=== PATIENT | female | born 1985 | race Caucasian/White ===

== ENCOUNTER 2022-05-07 11:50 | Outpatient (REF) | payer OTHER, SELFPAY ==
[2022-05-09 18:02] LABS: Homocysteine 135.1 umol/L (<10.4)
== END 2022-05-07 11:51 | disposition home or self-care (01) ==
LOC: HO.LAB 11:50
PROVIDERS: PCP Family Medicine; Visit Provider Family Medicine
DX: Z86.73 Personal history of transient ischemic attack (TIA), and cerebral infarction without residual deficits (principal)
CPT/HCPCS: 36415; 83090

== ENCOUNTER 2024-05-11 08:17 | Outpatient (REF) | payer OTHER, SELFPAY ==
[2024-05-13 15:09] LABS: Homocysteine 8.7 umol/L (<10.4)
== END 2024-05-11 08:18 | disposition home or self-care (01) ==
LOC: HO.LAB 08:17
PROVIDERS: PCP Family Medicine; Visit Provider Family Medicine
DX: E72.11 Homocystinuria (principal)
CPT/HCPCS: 36415; 83090

== ENCOUNTER 2025-10-07 09:08 | Outpatient (AMB) | payer OTHER, SELFPAY ==
--- NOTE | 2025-10-07 07:42 | MHC.PC.OV ---
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 1. Little interest or pleasure in doing things: not at all 2. Feeling down, depressed, or hopeless: not at all 3. Trouble falling or staying asleep, or sleeping too much: not at all 4. Feeling tired or having little energy: not at all 5. Poor appetite or overeating: not at all 6. Feeling bad about yourself - or that you are a failure or have let yourself or your family down: not at all 7. Trouble concentrating on things, such as reading the newspaper or watching television: not at all 8. Moving or speaking so slowly that other people could have noticed. Or the opposite - being so fidgety or restless that you have been moving around a lot more than usual: not at all 9. Thoughts that you would be better off or of hurting yourself in some way: not at all Total score: 0 Source: Developed by Drs. Rei May, Tania Huber, Mick Orozco and colleagues, with an educational kirby from [employer]. Thrive Questionnaire Date Thrive assessed: 10/07/25 I am a: Patient Within the past 12 months, did the food you bought not last and you didn't have the money to get more?: Never true Within the past 12 months, did you worry whether your food would run out before you got money to buy more?: Never true Do you have trouble paying for medicines?: No Do you have trouble getting transportation to medical appointments?: No Do you have trouble paying your heating and electricity bill?: No Do you have trouble taking care of your child, family member or friend?: No Do you have trouble with day-to-day activities such as bathing, preparing meals, shopping, managing finances, etc.?: No Are you currently unemployed and looking for a job?: No Are you interested in more education?: No THRIVE Score: 0 AUDIT C Alcohol Use Questionnaire (AUDIT-C) 1. How often do you have a drink containing alcohol?: Monthly or less 2. How many drinks containing alcohol do you have on a typical day when you are drinking?: 1 or 2 3. How often do you have six or more drinks on one occasion?: Less than monthly Total Score: 2 ANA-7 AMB Questionnaire ANA-7 Date ANA - 7 assessed: 10/07/25 Feeling nervous, anxious, or on edge: 0 = Not at all Not being able to stop or control worryin = Not at all Worrying too much about different things: 0 = Not at all Trouble relaxin = Not at all Being so restless that it is hard to sit still: 0 = Not at all Becoming easily annoyed or irritable: 0 = Not at all Feeling afraid as if something awful might happen: 0 = Not at all Total ANA-7 score (0-4 normal; 5-9 mild; 10-14 moderate; 15-21 severe): 0 Source: Developed by Drs. Rei May, Tania Huber, Mick Orozco and colleagues, with an educational kirby from [employer]. Coding
--- NOTE | 2025-10-07 09:11 | MHC.PC.OV ---
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 Required: No Accompanied by: Self / Same As Patient Is last menstrual period known: No (07/07/25) Patient : Yes Allergies No Known Allergies Allergy (Verified 10/07/25 09:11) Tobacco use date assessed: 10/07/25 Dental Screening Dental Screen Date: 10/07/25 Did you have a dental visit in the last 12 months?: Yes Did you have a dental problem in the last 6 months where you did not have access to dental care?: No Was dental information given to patient?: Patient has dentist HPI HPI Comments History of Present Illness Details 40-year-old female with history of CVA, anxiety presenting to the office today for management of chronic conditions and to establish care. 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 Had been on Lovenox 6 week which was then discontinued and then 6 months had recurrence. Symptoms were right-sided paresthesias and right-sided facial droop. She has now been on Eliquis 5 mg twice daily lifelong. However is now 9 weeks and has been transitioned back to enoxaparin. No other family history of clots -9 weeks gestation. On prenatals with folic acid. Initially had been experiencing some nausea and vomiting but this has subsided. She is otherwise feeling well. Following with [facility] Ob, appointment next month. 6m pp ischemic same part of brain. on lovenox 6w then 6 m recurrence. now on eliquis lifelong. migraines x4 days. right paresthesia, facial droop. She will be meeting with Maternal Medicine Anxiety-has been well-controlled since becoming . Has lorazepam as needed Concerns: None Health maintenance: Mammograms to start at age 40 or when , breast-feeding/pumping has concluded ROS: General: No fevers, malaise, unintentional weight loss HEENT: No blurred vision, diplopia. No sore throat, nasal congestion, rhinorrhea, sinus pain, ear pain Cardiovascular: No chest pain, palpitations, or leg edema Respiratory: No shortness of breath, wheezing, cough GI: No abdominal pain, nausea, vomiting, diarrhea, constipation, melena, hematochezia : No dysuria, hematuria, increased urinary frequency, decreased urinary output MSK: No myalgia, back pain Neuro: No headaches, weakness, paresthesias Skin: No rashes or lesions EXAM: Constitutional - Awake and Alert, No apparent distress Eyes - PERRL Cardiovascular - S1S2, RRR, No edema Respiratory - Normal lung expansion, Normal respiratory effort, No respiratory distress, CTA bilaterally Extremities - no calf tenderness bilaterally, no swelling Skin - Warm/Dry Neurological - Alert & oriented x3 Psychological - Appropriate affect [facility] Medical History (Updated 10/07/25 @ 09:54 by PHILIPPE Bennett) Anxiety Ectopic Elevated homocysteine CVA (cerebral vascular accident) Surgical History (Updated 10/07/25 @ 09:42 by PHILIPPE Bennett) S/P unilateral salpingo-oophorectomy Family History (Updated 10/07/25 @ 09:42 by PHILIPPE Bennett) Father Diabetes Basal cell carcinoma High plasma homocystine Brother High plasma homocystine Social History Housing: House Patient Tobacco Use Status: Never used Tobacco e-Cigarette/Vaping Use: Never Used service: No Current occupational status: employed Current occupation: [employer] Questionnaire AUDIT C Alcohol Use Questionnaire (AUDIT-C) 1. How often do you have a drink containing alcohol?: Never 2. How many drinks containing alcohol do you have on a typical day when you are drinking?: 1 or 2 3. How often do you have six or more drinks on one occasion?: Less than monthly Total Score: 1 Physical exam (Primary Care) Vital Signs: Last Vital Signs Temp 97.9 F 10/07/25 09:19 Pulse 83 10/07/25 09:19 Resp 16 10/07/25 09:19 BP 98/64 10/07/25 09:19 Pulse Ox 97 10/07/25 09:19 Oxygen Delivery Method Room Air 10/07/25 09:19 BMI result Body Mass Index 26.5 Tobacco/Smoking Status: Tobacco use Status Tobacco use date assessed 10/07/25 10/07/25 09:13 Patient Tobacco Use Status Never used Tobacco 10/07/25 09:22 e-Cigarette/Vaping Use Never Used 10/07/25 09:22 Coding Level of Care Code Complex visit Add On G2211 Diagnoses CVA (cerebral vascular accident) I63.9 Elevated homocysteine R79.89 Z34.90 Anxiety F41.9 Assessment & Plan Assessment & Plan (1) CVA (cerebral vascular accident): Comment: OCP and elevated homocysteine 2005 and 2023- Code(s): I63.9 - Cerebral infarction, unspecified Category: Medical Plan: Reviewed last Hematology note. Continue enoxaparin until 6 weeks at which time will transition back to Eliquis. Reviewed last Hematology note. (2) Elevated homocysteine: Code(s): R79.89 - Other specified abnormal findings of blood chemistry Category: Medical Plan: Reviewed last Hematology note. As above (3) : Code(s): Z34.90 - Encounter for supervision of normal , unspecified, unspecified trimester Category: Medical Plan: Meet with Maternal- Medicine regarding medications. Establish with Ob next month as scheduled. Continue vitamins (4) Anxiety: Code(s): F41.9 - Anxiety disorder, unspecified Category: Medical Plan: Follow-up with Maternal Medicine as scheduled. Use lorazepam only as needed for severe anxiety/panic Plan Follow-up in the office for annual physical exam in 6 months. Labs as below Orders: Orders Basic Metabolic Panel Today I63.9 - Cerebral infarction, unspecified, Z34.90 - Encounter for supervision of normal , unspecified, unspecified trimester Liver Panel Today I63.9 - Cerebral infarction, unspecified, Z34.90 - Encounter for supervision of normal , unspecified, unspecified trimester Vitamin D 25-OH Total Today I63.9 - Cerebral infarction, unspecified, Z34.90 - Encounter for supervision of normal , unspecified, unspecified trimester IRON PROFILE Today Z34.90 - Encounter for supervision of normal , unspecified, unspecified trimester Complete Blood Count Auto Diff Today I63.9 - Cerebral infarction, unspecified, Z34.90 - Encounter for supervision of normal , unspecified, unspecified trimester Lipid Panel Today I63.9 - Cerebral infarction, unspecified, Z34.90 - Encounter for supervision of normal , unspecified, unspecified trimester Hemoglobin A1c Today I63.9 - Cerebral infarction, unspecified, Z34.90 - Encounter for supervision of normal , unspecified, unspecified trimester TSH reflex Free T4 Today I63.9 - Cerebral infarction, unspecified, Z34.90 - Encounter for supervision of normal , unspecified, unspecified trimester
[2025-10-07 09:19] VITALS: BP 98/64; PULSE 83; RESP 16; TEMP 36.6; O2SAT 97; BMI 26.5
--- OUTSIDE RECORDS SUMMARY | 2025-10-07 09:30 | XMS_ITS | Clinical Summary ---
Author Organization [facility] Address [address] [address] Phone Care Team Providers Care Flasher Adjuster Name Role Phone Chai Gorman MD Primary Care Provider [phone] Allergies No known active allergies Medications LORazepam (ATIVAN) 0.5 MG tablet Take 0.5 mg by mouth every 6 (six) hours as needed for anxiety. Active Active Problems No known active problems Social History Tobacco Use Types Packs/Day Years Used Date Smoking Tobacco: Never Smokeless Tobacco: Never Education Answer Date Recorded Are you interested in more education? Not on abbey e 03/14/2023 Are you concerned about learning? Not on file 03/14/2023 No 03/14/2023 No 03/14/2023 Digital Access Answer Date Recorded No 04/12/2023 No 04/12/2023 No 04/12/2023 Reliable internet access at home? Not on file 04/12/2023 Device with a working camera? Not on file Comments Unknown Sex and Gender Information Value Date Recorded Sex Assigned at Not on file Legal Sex Female 9:35 AM EST Gender Identity Female 10/21/2019 9:43 AM EST Sexual Orientation Straight 10/21/2019 9: 43 AM EST Last Filed Vital Signs Vital Sign Reading Time Taken Comments Blood Pressure 114/82 10/21/2019 9:56 AM EST Pulse 98 10/21/2019 9:56 AM EST Temperature 36.8 C (98.2 F) 10/21/2019 9:56 AM EST Respiratory Rate 18 10/21/2019 9:56 AM EST Oxygen Saturation 97% 10/21/2019 9:56 AM EST Inhaled Oxygen Concentration - - Weight 63.5 kg (140 lb) 10/21/2019 9:56 AM EST Height 170.2 cm (5' 7 ) 10/21/2019 9:56 AM EST Body Mass Index 21.93 10/21/2019 9:56 AM EST Plan of Treatment Health Maintenance Due Date Last Done Comments Adult Td,Tdap Booster 1986 DEPRESSION SCREENING 1998 HEPATITIS C SCREENING 2004 HIV ONE-TIME SCREENING (18-6 5 YEARS) 2004 PAP SMEAR 2007 INFLUENZA VACCINE (#1) 2025 COVID-19 VACCINE (2024-2 6 season) 2025 02/05/2021 SMOKING STATUS SCREENING (On ce After 26 Yrs) Completed 10/21/2019 HEPATITIS A VACCINES Aged Out No long er eligible based on patient's age to complete this topic HIB VACCINES Aged Out No longer eligi ble based on patient's age to complete this topic MENINGOCOCCAL VACCINES (ACWY) Aged Out No longer eligible based on patient's age to complete this topic MENINGOCOCCAL VACCINES (B) Aged Out N o longer eligible based on patient's age to complete this topic PNEUMOCOCCAL VACCINES (0-49 years) Aged Out No longer eligible based on patient's age to complete this topic Medical Devices Not on file Insurance [employer] PPO [employer] [address] [place] [address] [employer] PPO [employer] [address] [place] [address] [employer] PPO [employer] [address] [address] [place] [address] [employer] PPO [facility] PPO Care Teams Flasher Adjuster Relationship Specialty Start Date End Date Chai Gorman MD [address] [place] [address] [place] [address] PCP - General Internal Medicine 10/21/19 Additional Source Comments The information contained in this document represents components of the legal health record. It is not the complete legal health record.[facility]
== END 2025-10-07 09:50 | disposition home or self-care (01) ==
LOC: HO.HMCHD 09:08
PROVIDERS: PCP Family Medicine; Visit Provider Physician Assistant
DX: I63.9 Cerebral infarction, unspecified (principal); R79.89 Other specified abnormal findings of blood chemistry; Z34.90 Encounter for supervision of normal pregnancy, unspecified, unspecified trimester; F41.9 Anxiety disorder, unspecified

== ENCOUNTER 2025-10-07 09:55 | Outpatient (REF) | payer OTHER, SELFPAY ==
[2025-10-07 13:59] LABS: MANUAL DIFF FLAG NO
[2025-10-07 14:15] LABS: Hematocrit 41.4 % (37.0-47.0); Hemoglobin 14.1 g/dl (12.0-16.0); Imm Gran Abs Auto 0.02 X10*3/uL (0.00-0.03); Imm Gran Pct Auto 0.3 % (0.0-0.4); Lymphocytes Absolute Auto 2.0 X10*3/uL (1.2-4.9); Mean Corpuscular HGB Conc 34.1 g/dl (31.0-35.0); Mean Corpuscular Hemoglobin 29.7 pg (27.0-33.0); Mean Corpuscular Volume 87.3 fL (80.0-98.0); NRBC Abs Auto 0.000 X10*3/uL (0.0-0.012); NRBC Pct Auto 0.0 /100WBC (0.0-0.2); Platelet Count 266 X10*3/uL (160-400); Red Blood Count 4.74 X10*6/uL (4.20-5.50); White Blood Count 6.2 X10*3/uL (4.8-10.8)
[2025-10-07 19:25] LABS: Alanine Aminotransferase 10 U/L (0-31); Albumin Level 4.2 g/dL (3.5-5.0); Alkaline Phosphatase 34 U/L (39-117); Aspartate Amino Transferase 17 U/L (5-31); Cholesterol 150 mg/dL (<200); HDL Cholesterol 61 mg/dL (>40); Iron 162 mcg/dL (30-160); Percent Iron Saturation 61 % (15-50); Total Iron Binding Capacity 265 mcg/dL (228-428); Total Protein 7.0 g/dL (6.5-8.0); Triglycerides 116 mg/dL (<150); Unsaturated Iron Binding 103 ug/dL
[2025-10-07 20:09] LABS: Anion Gap 14 (12-20); Blood Urea Nitrogen 8 mg/dL (9-16); Calcium 9.8 mg/dL (8.4-10.2); Carbon Dioxide 23 mmol/L (22-29); Chloride 106 mmol/L (96-108); Estimated Glomerular Filt Rate > 60; Potassium 4.2 mmol/L (3.3-5.1); Sodium 139 mmol/L (135-145)
[2025-10-07 20:14] LABS: Free T4 (Free Thyroxine) 1.22 ng/dL (0.71-1.85)
== END 2025-10-07 09:56 | disposition home or self-care (01) ==
LOC: HO.10HDL 09:55
PROVIDERS: Visit Provider Physician Assistant
DX: Z34.90 Encounter for supervision of normal pregnancy, unspecified, unspecified trimester (principal); I63.9 Cerebral infarction, unspecified; Z13.29 Encounter for screening for other suspected endocrine disorder; Z13.1 Encounter for screening for diabetes mellitus; Z13.21 Encounter for screening for nutritional disorder
CPT/HCPCS: 36415; 80048; 80061; 80076; 82306; 83036; 83540; 84439; 84443; 85025

== ENCOUNTER 2025-10-18 12:54 | Outpatient (AMB) | payer OTHER, SELFPAY ==
--- NOTE | 2025-10-18 13:04 | MHC.OFFVIS ---
Vital Signs 10/18/25 13:09 Height 5 ft 6.77 in Weight 169 lb 15.622 oz BMI 26.8 BP 90/60 Blood Pressure Location Rt brachial Position Sitting Pulse 74 Pulse Source Pulse Oximeter Pulse Oximetry (%) 97 Oxygen Delivery Method Room Air Intake Visit Reasons: Thyrotoxicosis, unspecified without thyrotoxic cri Intake Note: New patient internally referred by PCP for Thyrotoxicosis. Patient reports she is currently 11 weeks , due date is May 11, 2026. Sales Producer Required: No Accompanied by: Self / Same As Patient Allergies No Known Allergies Allergy (Verified 10/18/25 13:09) HPI Comments Details: The patient is a 40 year old individual presenting for evaluation of abnormal thyroid levels. The patient is currently 11 weeks with the second child, and this is the first time an issue with thyroid levels has been identified. The patient has no personal history of thyroid problems, including during the previous . The patient reports a family history of a thyroid condition in the father, who requires yearly monitoring, and also has diabetes. There is no known family history of thyroid cancer. During this first trimester, the patient experienced a lot of nausea with one episode of vomiting and some initial weight loss, but states weight is now progressing appropriately. The patient reports occasional, infrequent palpitations but denies tremors. The patient denies any problems swallowing, hoarseness, swelling in the neck, difficulty breathing when lying flat, bulging of the eyes, or blurred or double vision. There is no history of radiation to the neck. The patient previously took a B vitamin supplement but discontinued it upon starting vitamins and denies taking biotin. - Constitutional: Denies tremors. - Eyes: Denies exophthalmos, blurred vision, or diplopia. - ENT/Neck: Denies dysphagia, hoarseness, tenderness, or swelling in the neck. - Cardiovascular: Reports occasional, infrequent palpitations. - Respiratory: Denies dyspnea when lying flat. - Gastrointestinal: Reports significant nausea and one episode of emesis in the first trimester. [facility] Medical History (Updated 10/10/25 @ 11:55 by PHILIPPE Bennett) Anxiety Ectopic Elevated homocysteine CVA (cerebral vascular accident) Surgical History S/P unilateral salpingo-oophorectomy Family History Father Diabetes Basal cell carcinoma High plasma homocystine Brother High plasma homocystine Social History Housing: House Patient Tobacco Use Status: Never used Tobacco e-Cigarette/Vaping Use: Never Used service: No Current occupational status: employed Current occupation: [employer] Physical Exam Vital Signs: Last Vital Signs Pulse 74 10/18/25 13:09 BP 90/60 10/18/25 13:09 Pulse Ox 97 10/18/25 13:09 Oxygen Delivery Method Room Air 10/18/25 13:09 BMI result Body Mass Index 26.8 Const Other: Thyroid gland is normal size weighs about 15 g . There are no thyroid nodules palpated. There are no tremors present in the upper extremities Assessment & Plan Assessment & Plan (1) Hyperthyroidism during : Code(s): O99.280 - Endocrine, nutritional and metabolic diseases complicating , unspecified trimester; E05.90 - Thyrotoxicosis, unspecified without thyrotoxic crisis or storm Category: Medical Plan: This is a 40-year-old white female found to have a suppressed TSH during 1st trimester 11 weeks . Differential diagnosis includes gestational hyperthyroidism during 1st trimester resulting in suppressed TSH. Other differential includes the presence of Graves disease. Free T4 is in the normal range recently checked. Patient appears clinically euthyroid Plan is to recheck TSH, free T4, free T3 about 2 months along with TSI antibodies. If free T4 remains normal particularly if antibodies are negative, observation is all as needed. 1. Subclinical hyperthyroidism in The patient is a 40-year-old individual at 11 weeks gestation with a suppressed TSH and a normal free T4. The leading differential diagnosis is gestational thyrotoxicosis, a benign condition related to beta-hCG stimulation of the thyroid in the first trimester, which often resolves by the second trimester.Graves' disease is a less likely possibility, but it is considered As the patient is clinically well and the free T4 is within the normal range, no treatment is indicated at this time, thereby avoiding the risks associated with medications like PTU. The plan is to monitor with repeat labs, including TSH, free T4, free T3, and thyroid antibodies, in 6-8 weeks, with a follow-up visit scheduled for 10 weeks. The patient was advised that if labs normalize and antibodies are negative, the follow-up can be canceled. The patient was also instructed on red flag symptoms that would warrant earlier re-evaluation, such as lack of weight gain, persistent palpitations, tremors, or diarrhea. A letter will be sent to the primary care provider, and the patient was advised on how to obtain a copy for the OB. The patient had an opportunity to ask questions regarding treatment plan. The patient expressed understanding and agreement with the above treatment plan. Patient was informed and verbally consented to the use of an ambient scribe for clinic note documentation during this visit. Orders: Orders Triiodothyronine T3 Free 2 Months E05.90 - Thyrotoxicosis, unspecified without thyrotoxic crisis or storm, O99.280 - Endocrine, nutritional and metabolic diseases complicating , unspecified trimester Free T4 (Free Thyroxine) 2 Months E05.90 - Thyrotoxicosis, unspecified without thyrotoxic crisis or storm, O99.280 - Endocrine, nutritional and metabolic diseases complicating , unspecified trimester Thyroid Stimulating Hormone 2 Months E05.90 - Thyrotoxicosis, unspecified without thyrotoxic crisis or storm, O99.280 - Endocrine, nutritional and metabolic diseases complicating , unspecified trimester Thyroid Stimulating Immunoglob 2 Months E05.90 - Thyrotoxicosis, unspecified without thyrotoxic crisis or storm, O99.280 - Endocrine, nutritional and metabolic diseases complicating , unspecified trimester Coding Level of Care Code New Pt Level 4 (36126) Diagnoses Hyperthyroidism during O99.280; E05.90
[2025-10-18 13:09] VITALS: BP 90/60; PULSE 74; O2SAT 97; BMI 26.8
--- OUTSIDE RECORDS SUMMARY | 2025-10-18 14:46 | XMS_ITS | Clinical Summary ---
Author Organization [facility] Address [address] [address] Phone Care Team Providers Care Soil Fertility Specialist Name Role Phone Chai Gorman MD Primary Care Provider [phone] Allergies No known active allergies Medications LORazepam [...] topic Medical Devices Not on file Insurance [employer] P[employer] PPO [employer] [address] [place] [address] [employer] PPO [employer] [address] [place] [address] [employer]PO [employer] [address] [address] [place] [address] [employer] PPO [facility] PPO Care Teams Soil Fertility Specialist Relationship Specialty Start Date End Date Chai Gorman MD [address] [place] [address] [place] [address] PCP - General Internal Medicine 10/21/19 Additional Source Comments The information contained in this document represents components of the legal health record. It is not the complete legal health record.[facility]
== END 2025-10-18 13:33 | disposition home or self-care (01) ==
LOC: HO.ENCR 12:54
PROVIDERS: PCP Physician Assistant; Visit Provider Internal Medicine Endocrinology, Diabetes & Metabolism
DX: O99.280 Endocrine, nutritional and metabolic diseases complicating pregnancy, unspecified trimester (principal); E05.90 Thyrotoxicosis, unspecified without thyrotoxic crisis or storm
CPT/HCPCS: 99204